=== PATIENT | male | born 1985 | race Caucasian/White ===

== ENCOUNTER 2022-07-26 20:28 | Emergency (ER) | payer OTHER ==
[~2022-07-26] VITALS: Ht 177.8 cm; Wt 126.9 kg
== END 2022-07-26 21:33 | disposition home or self-care (01) ==
LOC: ED 20:28
DX: H57.12 Ocular pain, left eye (principal); G47.30 Sleep apnea, unspecified; Z88.2 Allergy status to sulfonamides; Z88.1 Allergy status to other antibiotic agents
CPT/HCPCS: 99283